=== PATIENT | male | born 1955 | race Two or more races ===

== ENCOUNTER 2017-06-23 21:16 | Inpatient (IN) | payer MEDICAID ==
[~2017-06-23] VITALS: Ht 182.9 cm; Wt 100.7 kg
--- NOTE | 2017-06-23 21:58 | NUR ---
DR CAROLA DICKERSON MD AT BEDSIDE FOR MSE.
[2017-06-23] MEDS ORDERED: ONDANSETRON 4 MG/2 ML VIAL IV ONE (22:00)
[2017-06-23] MEDS ORDERED: IV NORMAL SALINE 1000 ML BAG IV ONE (22:00)
[2017-06-23] MEDS ORDERED: MORPHINE SULFATE 2 MG/1 ML DISP.SYRIN IV ONE (22:00)
--- NOTE | 2017-06-23 22:05 | NUR ---
PT C/O LLQ ABDOMINAL PAIN X1 DAY. FAMILY STATES HE THREW UP ONCE AT HOME, BUT NO EMESIS SINCE. PT STILL C/O NAUSEA. GUARDING SITE, AND MOANING IN BED W/ EYES CLOSED.
[2017-06-23] MEDS ORDERED: ATOR10TA PO (22:11)
[2017-06-23] MEDS ORDERED: METF500T6 PO (22:11)
[2017-06-23] MEDS ORDERED: ASPI81TA31 PO (22:11)
[2017-06-23] MEDS ORDERED: LOSA100T15 PO (22:11)
[2017-06-23 22:14] LABS: BASOPHILS # (AUTO) 0.1 K/uL (0.0-8.0); BASOPHILS % (AUTO) 0.8 % (0.0-2.0); EOSINOPHILS # (AUTO) 0.1 K/uL (0.0-0.7); EOSINOPHILS % (AUTO) 0.4 % (0.0-7.0); HEMATOCRIT 45.9 % (36.7-47.1); HEMOGLOBIN 15.9 g/dL (12.5-16.3); LYMPHOCYTES # (AUTO) 1.4 K/uL (20.0-40.0); LYMPHOCYTES % (AUTO) 10.4 % (20.5-51.5); MEAN CORPUSCULAR HEMOGLOBIN 28.3 uug (23.8-33.4); MEAN CORPUSCULAR HGB CONC 35 g/dL (32.5-36.3); MEAN CORPUSCULAR VOLUME 81.9 fL (73.0-96.2); MONOCYTES # (AUTO) 0.8 K/uL (2.0-10.0); MONOCYTES % (AUTO) 6.2 % (0.0-11.0); NEUTROPHILS # (AUTO) 10.8 K/uL (1.8-8.9); NEUTROPHILS % (AUTO) 82.2 % (38.5-71.5); PLATELET COUNT (AUTO) 235 K/uL (152-348); WHITE BLOOD COUNT (AUTO) 13.2 K/uL (3.6-10.2)
[2017-06-23] MEDS ORDERED: ONDANSETRON 4 MG/2 ML VIAL ONE (22:16)
[2017-06-23] MEDS ORDERED: MORPHINE SULFATE 2 MG/1 ML DISP.SYRIN ONE (22:16)
[2017-06-23 22:28] LABS: BILIRUBIN,DIRECT 0.1 mg/dL (0.0-0.2); BILIRUBIN,TOTAL 0.6 mg/dL (0.2-1.0); CREATININE 1.2 mg/dL (0.6-1.3); POTASSIUM 4.1 mmol/L (3.5-5.1); TOTAL PROTEIN, SERUM 7.9 g/dL (6.4-8.2)
--- NOTE | 2017-06-23 22:28 | NUR ---
RADIOLOGY CALLED FOR XRAY AND CT.
[2017-06-23] MEDS ORDERED: MORPHINE SULFATE 4 MG/1 ML DISP.SYRIN ONE (22:45)
[2017-06-23] MEDS ORDERED: MORPHINE SULFATE 4 MG/1 ML DISP.SYRIN IV ONE (22:45)
--- NOTE | 2017-06-23 22:52 | NUR ---
PT TAKEN DOWN TO RADIOLOGY FOR XRAY/CT
[2017-06-23 23:24] LABS: *BILIRUBIN,URIN NEGATIVE (NEGATIVE); *BLOOD, URINE 3+ (NEGATIVE); *CLARITY,URINE SLIGHTLY CLOUDY (CLEAR); *COLOR,URINE YELLOW (YELLOW); *KETONES,URINE NEGATIVE (NEGATIVE); *PROTEIN,URINE 1+ (NEGATIVE); *UROBILINOGEN,URINE 0.2 E.U./dl (NORMAL); LEUKOCYTE ESTERASE ,URINE 1+ (NEGATIVE); NITRITE, URINE NEGATIVE (NEGATIVE); PH,URINE 5.5 (5.0-8.0); UGLUCOSE NEGATIVE (NEGATIVE)
[2017-06-23 23:31] LABS: RBC,URINE 80-100 /HPF (0-3); WBC,URINE 20-50 /HPF (0-3)
[2017-06-23 23:32] LABS: BACTERIA,URINE FEW /HPF (NONE SEEN); MUCUS,URINE MODERATE /LPF (0-FEW); SQUAMOUS EPITHELIAL CELL,UR MODERATE /HPF (NONE SEEN)
--- NOTE | 2017-06-24 00:09 | NUR ---
REPORT GIVEN TO CAITLYN DIAZ.
[2017-06-24] MEDS ORDERED: ASPIRIN EC 325 MG TABLET.DR PO ONE (00:17)
[2017-06-24] MEDS ORDERED: IV 1/2NS 1000 ML 1,000 ML IV PRN (00:30)
[2017-06-24] MEDS ORDERED: HYDROCODONE/APAP 5-325MG TABLET PO PRN (00:30)
[2017-06-24] MEDS ORDERED: ACETAMINOPHEN 325 MG TABLET PO PRN (00:30)
[2017-06-24] MEDS ORDERED: TAMSULOSIN HCL 0.4 MG CAP.SR.24H PO ONE (00:30)
[2017-06-24] MEDS ORDERED: ONDANSETRON 4 MG/2 ML VIAL IV PRN (00:30)
[2017-06-24] MEDS ORDERED: MORPHINE SULFATE 4 MG/1 ML DISP.SYRIN IV PRN (00:30)
--- NOTE | 2017-06-24 00:38 | NUR ---
PT RESTING IN BED W/ EYES CLOSED. FAMILY AT BEDSIDE.
[2017-06-24] MEDS ORDERED: MORPHINE SULFATE 4 MG/1 ML DISP.SYRIN ONE (00:55)
[2017-06-24] MEDS ORDERED: MORPHINE SULFATE 4 MG/1 ML DISP.SYRIN IV ONE (01:00)
[2017-06-24 01:44] VITALS: BP 123/73
--- NOTE | 2017-06-24 01:48 | NUR ---
Pt. admitted to tele, under care of Dr. Mandujano Belongs List completed
--- NOTE | 2017-06-24 02:43 | NUR ---
In from ER via gurney, 61 y/o male patient admitted to Tele w/ Dx. NSTEMI & Kidney Stone. Awake alert & oriented, no SOB denies chest pain. Still c/o minimal abdominal discomfort, left lower quadrant. Placed on monitoring and evaluation advisor- shows sinus rhythm w/ occasional PVCs & PACs. Vital signs are WNL. Admission assessment done, room & bed orientation initiated. Assisted to the bathroom, patient voided- slight cloudy urine output noted. Multiple family in room.
--- NOTE | 2017-06-24 02:52 | NUR ---
1/2 NS at 80 ml/hr IVF started as ordered. Left AC IV line intact & patent. Will continue to monitor.
[2017-06-24 04:00] VITALS: BP 113/75
--- NOTE | 2017-06-24 06:50 | NUR ---
Patient slept well, no acute resp distress. Sinus rhythm on the monitor.
[2017-06-24] MEDS ORDERED: PANTOPRAZOLE SODIUM 40 MG TABLET.DR PO SCH (07:00)
--- NOTE | 2017-06-24 07:15 | NUR ---
RECEIVED PATIENT FROM DENTAL CHAIRSIDE ASSISTANT NURSE, PATIENT IN BED ASLEEP BUT RESPONDING TO NAME, NO DISTRESS NOTED AT THIS TIME, BED IN LOW POSITION, SIDE RAILS UP X2.
[2017-06-24 07:31] LABS: BASOPHILS # (AUTO) 0.1 K/uL (0.0-8.0); BASOPHILS % (AUTO) 0.7 % (0.0-2.0); EOSINOPHILS % (AUTO) 0.2 % (0.0-7.0); HEMATOCRIT 45.4 % (36.7-47.1); HEMOGLOBIN 15.4 g/dL (12.5-16.3); LYMPHOCYTES # (AUTO) 2.3 K/uL (20.0-40.0); LYMPHOCYTES % (AUTO) 22.3 % (20.5-51.5); MEAN CORPUSCULAR HEMOGLOBIN 28.2 uug (23.8-33.4); MEAN CORPUSCULAR HGB CONC 34 g/dL (32.5-36.3); MEAN CORPUSCULAR VOLUME 83.2 fL (73.0-96.2); MONOCYTES # (AUTO) 0.9 K/uL (2.0-10.0); MONOCYTES % (AUTO) 8.8 % (0.0-11.0); NEUTROPHILS # (AUTO) 7.1 K/uL (1.8-8.9); PLATELET COUNT (AUTO) 219 K/uL (152-348); RED BLOOD CELL COUNT(AUTO) 5.45 MIL/uL (4.06-5.63); WHITE BLOOD COUNT (AUTO) 10.4 K/uL (3.6-10.2)
[2017-06-24 08:16] LABS: THYROID STIMULATING HORMONE 0.675 mIU/mL (0.358-3.740)
[2017-06-24 08:27] LABS: BILIRUBIN,TOTAL 0.5 mg/dL (0.2-1.0); CREATININE 1.1 mg/dL (0.6-1.3); MAGNESIUM 1.7 mg/dL (1.8-2.4); PHOSPHOROUS 4.7 mg/dL (2.5-4.9); POTASSIUM 3.8 mmol/L (3.5-5.1); TOTAL PROTEIN, SERUM 6.7 g/dL (6.4-8.2)
[2017-06-24 08:36] VITALS: BP 102/67
[2017-06-24] MEDS ORDERED: ASPIRIN 81 MG TAB.CHEW PO SCH (09:00)
[2017-06-24] MEDS ORDERED: LOSARTAN POTASSIUM 50 MG TABLET PO SCH (09:00)
[2017-06-24 11:19] VITALS: BP 101/64
[2017-06-24 15:06] VITALS: BP 101/63
[2017-06-24] MEDS ORDERED: MAGNESIUM SULFATE/D5W 100 ML IV SCH (15:30)
[2017-06-24] MEDS ORDERED: MAGNESIUM OXIDE 400 MG TABLET PO ONE (16:15)
[2017-06-24 17:08] VITALS: BP 168/89
[2017-06-24] MEDS ORDERED: ATOR40TA PO (17:12)
[2017-06-24] MEDS ORDERED: ONDA4VIA30 IV (17:12)
[2017-06-24] MEDS ORDERED: ACET325T53 PO (17:12)
[2017-06-24] MEDS ORDERED: TAMS-3 PO (17:12)
[2017-06-24] MEDS ORDERED: Morphine Sulfate Inj IV (17:12)
[2017-06-24] MEDS ORDERED: HYDR-3326 PO (17:12)
[2017-06-24] MEDS ORDERED: CEFT1VIA15 IV (17:12)
[2017-06-24] MEDS ORDERED: PANT40TA2 PO (17:12)
[2017-06-24] MEDS ORDERED: DOCU100C36 PO (17:12)
[2017-06-24] MEDS ORDERED: ASPI-869 PO (17:12)
--- NOTE | 2017-06-24 17:45 | NUR ---
PATIENT WAS DISCHARGED TO [facility] AND PICKED UP THROUGH [facility] [employer] THROUGH [employer].
[2017-06-24] MEDS ORDERED: ATORVASTATIN 40 MG TABLET PO SCH (21:00)
[2017-06-24] MEDS ORDERED: DOCUSATE SODIUM 100 MG CAPSULE PO SCH (21:00)
[2017-06-24] MEDS ORDERED: DOCUSATE SODIUM 250 MG CAPSULE PO SCH (21:00)
[2017-06-24] MEDS ORDERED: ATORVASTATIN 10 MG TABLET PO SCH ×2 (21:00)
== END 2017-06-24 17:45 | disposition short-term general hospital (02) | DRG 190 ==
LOC: ER 21:18 → TELE 06-24 01:13
PROVIDERS: ADMIT Internal Medicine; ATTEND Internal Medicine
DX: I21.4 Non-ST elevation (NSTEMI) myocardial infarction (principal); E11.51 Type 2 diabetes mellitus with diabetic peripheral angiopathy without gangrene; I11.9 Hypertensive heart disease without heart failure; I73.9 Peripheral vascular disease, unspecified; E66.01 Morbid (severe) obesity due to excess calories; N13.2 Hydronephrosis with renal and ureteral calculous obstruction; E78.5 Hyperlipidemia, unspecified; K42.9 Umbilical hernia without obstruction or gangrene; K57.30 Diverticulosis of large intestine without perforation or abscess without bleeding; F17.210 Nicotine dependence, cigarettes, uncomplicated; Z68.30 Body mass index [BMI] 30.0-30.9, adult; R00.1 Bradycardia, unspecified; N39.0 Urinary tract infection, site not specified
CPT/HCPCS: 36415; 70030-TC; 71045; 83690; 83735; 84100; 84443; 85025; 85730; 87086; 93005; 93307; A4663; J2270; J2405; J3490; J7030